=== PATIENT | male | born 1955 | race Two or more races ===

== ENCOUNTER → 2020-04-08 | Emergency (ER) | payer OTHER ==
[~2020-04-08] VITALS: Ht 172.7 cm; Wt 84.4 kg
[~2020-04-08] MED LIST: GLIPIZIDE5 MG PO; LOSARTAN POTAS100 MG PO; METOPROLOL SUCC50 MG PO; NAPROXEN500 MG PO; OMEPRAZOLE40 MG PO; RESTORIL30 MG PO; TRAMADOL HCL50 MG PO
== END | disposition left against medical advice (07) ==
LOC: ER 13:48 → EDSEX 13:58 → ER 13:58
DX: K62.5 Hemorrhage of anus and rectum (principal); I16.0 Hypertensive urgency; I10 Essential (primary) hypertension

== ENCOUNTER → 2020-04-08 | Emergency (ER) | payer OTHER | END | disposition left against medical advice (07) | LOC: ER 23:34 | DX: Z53.20 Procedure and treatment not carried out because of patient's decision for unspecified reasons (principal) ==